=== PATIENT | female | born 1940 | race African-American/Black ===

== ENCOUNTER 2017-05-02 20:49 | Emergency (ER) | payer OTHER ==
[~2017-05-02] VITALS: Ht 172.7 cm; Wt 95.0 kg
[2017-05-02 23:52] LABS: BASOPHILS % 0.3 % (0.0-2.0); EOSINOPHILS % 1.2 % (0.0-5.0); HEMATOCRIT. 26.7 % (36.0-48.0); HEMOGLOBIN. 8.7 g/dL (12.0-16.0); LYMPHOCYTES % 10.3 % (20.0-50.0); MEAN CORPUSCULAR HEMOGLOBIN 24.4 pg (28.0-32.0); MEAN CORPUSCULAR VOLUME 74.4 fL (81.0-99.0); MEAN PLATELET VOLUME 9.5 fl (7.4-10.4); MONOCYTES % 11.9 % (2.0-8.0); NEUTROPHILS % 76.3 % (40.0-76.0); PLATELET 166 x1000/uL (130-400); RED BLOOD CELL COUNT 3.58 mill/uL (4.2-5.4); RED CELL DISTRIBUTION WIDTH 17.8 % (11.6-14.6)
[2017-05-02 23:56] LABS: INR 1.7; PARTIAL THROMBOPLASTIN TIME 32.4 sec (24.0-34.0); PROTHROMBIN TIME 17.9 sec
[2017-05-03 00:01] LABS: CARBON DIOXIDE 25 mEq/L (21-32); CHLORIDE 98 mEq/L (98-107); TROPONIN I < 0.02 ng/mL (0.00-0.04)
[2017-05-03] MEDS ORDERED: LEVOFLOXACIN 750MG PREMIX 150 ML IV NR (01:45)
[2017-05-03] MEDS ORDERED: DEXT 5% IV ONE (01:45)
[2017-05-03] MEDS ORDERED: WATER IV ONE (01:45)
[2017-05-03] MEDS ORDERED: PIPERACILLIN SODIUM IV ONE (01:45)
[2017-05-03 03:00] VITALS: BP 105/73
[2017-05-03] MEDS ORDERED: ENOXAPARIN 80MG/0.8ML SYR SUBCUT ONE (03:15)
[2017-05-03] MEDS ORDERED: ENOXAPARIN 100MG/ML SYR SUBCUT NR (03:45)
[2017-05-03] MEDS ORDERED: PIPERACILLIN/TAZ 3.375G PREMIX 50 ML IV NR (03:45)
[2017-05-03] MEDS ORDERED: IOHEXOL-350 100 ML BOTTLE ONE (14:46)
[2017-05-03] MEDS ORDERED: SODIUM CHLORIDE 0.9% 10ML VIAL ONE (14:46)
== END 2017-05-03 05:00 | disposition short-term general hospital (02) ==
LOC: ER 21:10
DX: C34.90 Malignant neoplasm of unspecified part of unspecified bronchus or lung (principal); R09.02 Hypoxemia; R00.0 Tachycardia, unspecified; Z91.81 History of falling
CPT/HCPCS: 36415; 71010; 71275; 80053; 84484; 85025; 85610; 85730; 93005; 96365; 96366; 96367; 96372; 99285; A4216; J1650; J1956; J2543; Q9967